=== PATIENT | male | born 1970 | race Hispanic/Latino ===

== ENCOUNTER 2018-08-30 12:35 | Emergency (ER) | payer OTHER ==
[2018-08-30 12:51] VITALS: RESP 18; TEMP 98.1; O2SAT 99
--- NOTE | 2018-08-30 13:33 | ED PDOC ---
HPI: Trauma/Fall - HPI Time Seen by Provider: 08/30/18 12:43 Chief Complaint (Nursing): Abnormal Skin Integrity Chief Complaint (Provider): head injury History Per: Patient History/Exam Limitations: no limitations Onset/Duration Of Symptoms: Hrs (today) Associated Symptoms: denies: Dizziness, LOC Additional Complaint(s): Kaleb Torres is a 48 year old male, with no significant past medical history, who presents to the emergency department for evaluation of a wound to the head onset today. 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 Patient has mild pain to where he hit his head and a mild bleeding. However, he denies any headache, nausea, vomit, changes in vision, LOC, dizziness or other medical complaints. PMD: Jarod Davis I Past Medical History Reviewed: Historical Data, Nursing Documentation, Vital Signs Vital Signs: Last Vital Signs Temp 98.1 F 08/30/18 12:44 Pulse 96 H 08/30/18 12:44 Resp 18 08/30/18 12:44 BP 120/89 08/30/18 12:44 Pulse Ox 99 08/30/18 12:44 - Medical History PMH: No Chronic Diseases - Surgical History Surgical History: No Surg Hx - Family History Family History: States: Unknown Family Hx - Social History Current smoker - smoking cessation education provided: No Alcohol: None Drugs: Denies - Immunization History Hx Tetanus Toxoid Vaccination: No Hx Influenza Vaccination: Yes Hx Pneumococcal Vaccination: Yes - Allergies Allergies/Adverse Reactions: Allergies Allergy/AdvReac Type Severity Reaction Status Date / Time No Known Allergies Allergy Verified 08/30/18 13:06 Review of Systems ROS Statement: Except As Marked, All Systems Reviewed And Found Negative Eyes: Negative for: Vision Change Gastrointestinal: Negative for: Nausea, Vomiting Skin: Positive for: Other (head wound) Neurological: Negative for: Headache, Dizziness Physical Exam - Reviewed Nursing Documentation Reviewed: Yes Vital Signs Reviewed: Yes - Physical Exam Appears: Positive for: No Acute Distress Head Exam: Positive for: NORMAL INSPECTION, NORMOCEPHALIC. Negative for: ATRAUMATIC (1.5cm linear laceration to the right superior scalp, minimal active bleeding.) Skin: Positive for: Normal Color, Warm, Dry Eye Exam: Positive for: Normal appearance, EOMI, PERRL Neck: Positive for: Normal (No tenderness to palpation of the spine), Painless ROM, Supple Cardiovascular/Chest: Positive for: Regular Rate, Rhythm. Negative for: Murmur Respiratory: Positive for: Normal Breath Sounds. Negative for: Respiratory Distress Gastrointestinal/Abdominal: Positive for: Normal Exam, Soft. Negative for: Tenderness Back: Positive for: Normal Inspection. Negative for: L CVA Tenderness, R CVA Tenderness, Vertebral Tenderness Extremity: Positive for: Normal ROM (upper and lower extremities). Negative for: Deformity, Swelling Neurologic/Psych: Positive for: Alert, Oriented (x3). Negative for: Motor/Sensory Deficits - ECG O2 Sat by Pulse Oximetry: 99 (RA) Pulse Ox Interpretation: Normal Medical Decision Making Medical Decision Making: Time: 12:43 Initial Impression: Simple laceration to the scalp. Wound closure with x2 haresh. Tylenol for pain and patient to follow up for staple removal Initial Plan: --Tylenol 325mg tab 650 mg PO --Reevaluation 13:40 The wound was cleaned with NS. The area was prepped and draped in the usual sterile fashion. The wound was closed with haresh. There was appropriate approximation. In total, x2 haresh were used. Good closure and hemostasis. The patient tolerated the procedure well with minimal pain and there were no complications. 13:45 Patient is medically stable and requires no further treatment in the ED at this time. Patient advised to follow up in 8-12 days for staple removal. Wound care and return parameters discussed. --- Scribe Attestation: Documented by Tomas Samuel, acting as a scribe for Roxane Méndez MD Provider Scribe Attestation: All medical record entries made by the Scribe were at my direction and personally dictated by me. I have reviewed the chart and agree that the record accurately reflects my personal performance of the history, physical exam, medical decision making, and the department course for this patient. I have also personally directed, reviewed, and agree with the discharge instructions and disposition. Procedures - Laceration/Wound Repair Right Upper Parietal Wound Length (cm): 1.5 Wound's Depth, Shape: superficial, linear Wound Explored: clean Wound Repaired With: [place] (x2) Wound Complexity: Simple Disposition - Clinical Impression Clinical Impression: Laceration of head - Disposition Disposition: Routine/Home Disposition Time: 13:45 Condition: IMPROVED Additional Instructions: Return to the emergency department if symptoms worsen such as signs of infection, bleeding, swelling, or other new symptoms. Return in 8 to 12 days for staple removal. Instructions: Wound Care (DC), Laceration Repair With Haresh (DC) Forms: [employer] (Turkmen), [facility] ED School/Work Excuse Print Language: SETSWA[place]
[2018-08-30 14:08] VITALS: BP 126/82; PULSE 88
== END 2018-08-30 14:08 | disposition home or self-care (01) ==
LOC: H.ER 12:35
DX: S01.01XA Laceration without foreign body of scalp, initial encounter (principal); W22.8XXA Striking against or struck by other objects, initial encounter; Y99.0 Civilian activity done for income or pay

== ENCOUNTER 2018-09-07 10:36 | Emergency (ER) | payer OTHER ==
[2018-09-07 10:39] VITALS: BP 121/80; PULSE 85; RESP 16; TEMP 97.5; O2SAT 97; BMI 31.4
[2018-09-07] MEDS ORDERED: Tdap Vaccine 0.5 ml Vial (10-64 yrs) IM ONE ×2 (10:48→10:52)
--- NOTE | 2018-09-07 10:50 | ED PDOC ---
HPI: Wound Care - HPI Time Seen by Provider: 09/07/18 10:48 Chief Complaint (Nursing): Suture/Staple Removal Chief Complaint (Provider): Staple Removal History Per: Patient Exam Limitations: no limitations Onset/Duration Of Symptoms: Days (seven) Additional Complaint(s): Pt presents to the ED complaining of the need to have two surgical hilda removed from his head after placement to close a laceration on 08/30; the patient denies infection, inflammation, headache, bleeding, fever or discharge. The wound is healing properly Past Medical History Reviewed: Historical Data, Nursing Documentation, Vital Signs Vital Signs: Last Vital Signs Temp 97.5 F L 09/07/18 10:38 Pulse 85 09/07/18 10:38 Resp 16 09/07/18 10:38 BP 121/80 09/07/18 10:38 Pulse Ox 97 09/07/18 10:38 - Family History Family History: States: Unknown Family Hx - Immunization History Hx Tetanus Toxoid Vaccination: No Hx Influenza Vaccination: Yes Hx Pneumococcal Vaccination: Yes - Allergies Allergies/Adverse Reactions: Allergies Allergy/AdvReac Type Severity Reaction Status Date / Time No Known Allergies Allergy Verified 08/30/18 13:06 Review of Systems ROS Statement: Except As Marked, All Systems Reviewed And Found Negative Skin: Positive for: Other (laceration (repaired)) Physical Exam - Reviewed Nursing Documentation Reviewed: Yes Vital Signs Reviewed: Yes - Physical Exam Appears: Positive for: Well, Non-toxic, No Acute Distress. Negative for: Uncomfortable Head Exam: Positive for: ATRAUMATIC, NORMAL INSPECTION Skin: Positive for: Normal Color, Warm, Dry. Negative for: Diaphoresis, Pallor, Rash Neck: Positive for: Normal, Painless ROM, Supple. Negative for: Decreased ROM Cardiovascular/Chest: Positive for: Regular Rate, Rhythm Respiratory: Positive for: Normal Breath Sounds - ECG O2 Sat by Pulse Oximetry: 97 Medical Decision Making Medical Decision Making: two surgical hilda removed from right cranium without incident; the wound is closed and healing properly Pt indicates no tetanus was given on repair and requests the same Disposition - Clinical Impression Clinical Impression: Removal of suture - Patient ED Disposition Is Patient to be Admitted: No Doctor Will See Patient In The: Office Counseled Patient/Family Regarding: Diagnosis - Disposition Disposition: Routine/Home Disposition Time: 10:52 Condition: STABLE Instructions: Staple Removal
== END 2018-09-07 11:08 | disposition home or self-care (01) ==
LOC: H.ER 10:36
DX: Z48.02 Encounter for removal of sutures (principal); Z23 Encounter for immunization